=== PATIENT | female | born 1930 | race Caucasian/White ===

== ENCOUNTER 2017-04-30 14:22 | Emergency (ER) | payer MEDICARE, OTHER | END 2017-04-30 15:40 | disposition home or self-care (01) | LOC: D.ER 14:22 | DX: I10 Essential (primary) hypertension (principal) ==

== ENCOUNTER 2018-03-02 14:46 | Emergency (ER) | payer MEDICARE, OTHER ==
[~2018-03-02] VITALS: Ht 167.6 cm; Wt 81.8 kg
[2018-03-02 15:10] VITALS: Ht 167.6 cm; Wt 81.8 kg
[2018-03-02 15:33] LABS: BASOPHILS 0.3 % (0-2); EOSINOPHILS 0.4 % (0-7); HEMATOCRIT 40.3 % (36.0-48.0); HEMOGLOBIN 13.4 g/dL (12-16); MCH 30.2 pg (26.0-34.0); MCHC 33.3 g/dL (31.0-37.0); MCV 90.8 fL (80.0-100.0); MEAN PLATELET VOLUME 10.8 fL (7.4-10.4); MONOCYTES 6.6 % (2-11); NEUTROPHILS 55.7 % (40-80); PLATELET COUNT 229 10x3/uL (130-400); RBC 4.44 10x6/uL (4.00-5.40); WBC 7.8 10x3/uL (4.8-10.8)
[2018-03-02 15:47] LABS: ALBUMIN 3.8 g/dL (3.4-5.0); ALKALINE PHOSPHATASE 88 U/L (46-116); ALT (SGPT) 14 U/L (10-68); BILIRUBIN - TOTAL 1.26 mg/dL (0.2-1.3); CALC OSMOLALITY 285 mosm/kg (275-300); CALCIUM 9.3 mg/dL (8.5-10.1); CARBON DIOXIDE 28.5 mmol/L (21.0-32.0); CHLORIDE - SERUM 107 mmol/L (98-107); CREATININE - SERUM 0.8 mg/dL (0.6-1.3); GLUCOSE 107 mg/dL (74-106); PROTEIN - SERUM 7.1 g/dL (6.4-8.2); SODIUM 144 mmol/L (136-145); UREA NITROGEN 9 mg/dL (7-18); eGFR NON AFRICAN AMERICAN 72 mL/min (90-120)
[2018-03-02 16:25] LABS: CKMB 0.9 U/L (0.0-3.6); CREATINE KINASE 52 UL (21-215); TROPONIN-I < 0.017 ng/mL (0.000-0.060)
[2018-03-02 18:47] VITALS: BP 128/84
== END 2018-03-02 18:48 | disposition home or self-care (01) ==
LOC: D.ER 14:46
PROVIDERS: Emergency Medicine
DX: R42 Dizziness and giddiness (principal); I45.2 Bifascicular block; I10 Essential (primary) hypertension

== ENCOUNTER 2018-03-19 09:26 | Emergency (ER) | payer MEDICARE, OTHER ==
[~2018-03-19] VITALS: Ht 167.6 cm; Wt 86.4 kg
[2018-03-19 09:29] VITALS: Ht 167.6 cm; Wt 86.4 kg
[2018-03-19 10:11] LABS: BASOPHILS 0.2 % (0-2); EOSINOPHILS 0.7 % (0-7); HEMATOCRIT 40.1 % (36.0-48.0); HEMOGLOBIN 13.2 g/dL (12-16); IMMATURE GRANULOCYTES 0.2 % (0-5); LYMPHOCYTES 41.6 % (15-50); MCH 29.7 pg (26.0-34.0); MCHC 32.9 g/dL (31.0-37.0); MCV 90.3 fL (80.0-100.0); MEAN PLATELET VOLUME 10.6 fL (7.4-10.4); MONOCYTES 5.9 % (2-11); NEUTROPHILS 51.4 % (40-80); PLATELET COUNT 212 10x3/uL (130-400); RBC 4.44 10x6/uL (4.00-5.40); WBC 5.6 10x3/uL (4.8-10.8)
[2018-03-19 10:28] LABS: ALBUMIN 3.4 g/dL (3.4-5.0); ANION GAP 7.5 mmol/L (8-16); BILIRUBIN - TOTAL 1.01 mg/dL (0.2-1.3); CALCIUM 9.1 mg/dL (8.5-10.1); CARBON DIOXIDE 32.3 mmol/L (21.0-32.0); CREATININE - SERUM 0.8 mg/dL (0.6-1.3); POTASSIUM - SERUM 3.8 mmol/L (3.5-5.1); PROTEIN - SERUM 6.7 g/dL (6.4-8.2)
[2018-03-19 13:54] VITALS: BP 132/84
== END 2018-03-19 13:59 | disposition home or self-care (01) ==
LOC: D.ER 09:26
PROVIDERS: Family Medicine
DX: R42 Dizziness and giddiness (principal); R55 Syncope and collapse; I10 Essential (primary) hypertension